=== PATIENT | male | born 1960 | race Caucasian/White ===

== ENCOUNTER 2017-07-10 19:53 | Emergency (ER) | payer OTHER ==
[~2017-07-10] VITALS: Ht 177.8 cm; Wt 101.6 kg
[2017-07-10] MEDS ORDERED: DOXYCYCLINE 10100 MG PO (20:28)
[2017-07-10] MEDS ORDERED: NORCO 5-325 TA1 EAC1 PO (20:31)
[2017-07-10 20:42] VITALS: BP 138/88
== END 2017-07-10 20:45 | disposition home or self-care (01) ==
LOC: M.ERS 19:53
DX: L02.212 Cutaneous abscess of back [any part, except buttock and flank] (principal); L03.312 Cellulitis of back [any part except buttock and flank]; S20.461A Insect bite (nonvenomous) of right back wall of thorax, initial encounter; E03.9 Hypothyroidism, unspecified; F17.200 Nicotine dependence, unspecified, uncomplicated; W57.XXXA Bitten or stung by nonvenomous insect and other nonvenomous arthropods, initial encounter; Y93.89 Activity, other specified; Y92.89 Other specified places as the place of occurrence of the external cause; Y99.8 Other external cause status

== ENCOUNTER 2017-07-12 14:42 | Emergency (ER) | payer OTHER ==
[~2017-07-12] VITALS: Ht 177.8 cm; Wt 99.8 kg
[~2017-07-12 14:42] MED LIST: DOXYCYCLINE 10100 MG PO; NORCO 5-325 TA1 EAC1 PO
[2017-07-12 14:49] VITALS: BP 137/82
== END 2017-07-12 15:14 | disposition home or self-care (01) ==
LOC: M.ERS 14:42
DX: L02.212 Cutaneous abscess of back [any part, except buttock and flank] (principal); E03.9 Hypothyroidism, unspecified